=== PATIENT | female | born 1960 ===

== ENCOUNTER 2017-05-19 15:00 | Inpatient (IN) | payer OTHER ==
[~2017-05-19] VITALS: Ht 154.9 cm; Wt 71.7 kg
[2017-05-21] MEDS ORDERED: PROVENTIL HFA6.7 GM IH (13:42)
[2017-05-21] MEDS ORDERED: NORVASC5 MG PO (13:43)
[2017-05-28] MEDS ORDERED: OXYC1TAB9 PO (17:00)
== END 2017-05-28 18:07 | disposition home or self-care (01) | DRG 331 ==
LOC: SURH 05-25 06:33 → O/R 05-25 06:33 → SURH 05-25 12:24
PROVIDERS: Surgery
PROC: 0DTP4ZZ Resection of Rectum, Percutaneous Endoscopic Approach (ICD-10-PCS; 2017-05-25)
PROC: 0DBU4ZZ Excision of Omentum, Percutaneous Endoscopic Approach (ICD-10-PCS; 2017-05-25)
PROC: 0DJD8ZZ Inspection of Lower Intestinal Tract, Via Natural or Artificial Opening Endoscopic (ICD-10-PCS; 2017-05-25)
PROC: 3E0F7GC Introduction of Other Therapeutic Substance into Respiratory Tract, Via Natural or Artificial Opening (ICD-10-PCS; 2017-05-25)
PROC: 0DTN4ZZ Resection of Sigmoid Colon, Percutaneous Endoscopic Approach (ICD-10-PCS; principal; 2017-05-25 22:15)
DX: K57.32 Diverticulitis of large intestine without perforation or abscess without bleeding (principal); I11.9 Hypertensive heart disease without heart failure; R73.01 Impaired fasting glucose; J45.998 Other asthma

== ENCOUNTER 2017-08-11 08:30 | Outpatient (CLI) | payer OTHER ==
[~2017-08-11 08:30] MED LIST: NORVASC5 MG PO; OXYC1TAB9 PO; PROVENTIL HFA6.7 GM IH
== END 2017-08-11 09:00 | disposition home or self-care (01) ==
LOC: NUCLEAR 08:30
DX: I11.9 Hypertensive heart disease without heart failure (principal); M54.6 Pain in thoracic spine; S22.020A Wedge compression fracture of second thoracic vertebra, initial encounter for closed fracture

== ENCOUNTER 2019-01-18 21:58 | Emergency (ER) | payer OTHER ==
[~2019-01-18] VITALS: Ht 154.9 cm; Wt 68.9 kg
[2019-01-18] MEDS ORDERED: FORTAMET500 MG (22:18)
[2019-01-18] MEDS ORDERED: LOSARTAN POTASS50 MG (22:18)
[2019-01-18] MEDS ORDERED: ATORVASTATIN CA10 MG (22:19)
[2019-01-19] MEDS ORDERED: INTESTINEX680 M1 PO (07:24)
[2019-01-19] MEDS ORDERED: FLAGYL500MG PO (07:24)
[2019-01-19] MEDS ORDERED: LEVSIN/SL0.125 MG SL (07:24)
[2019-01-19] MEDS ORDERED: CIPRO500 MG PO (07:24)
== END 2019-01-19 08:10 ==
LOC: ER 21:58
DX: K57.90 Diverticulosis of intestine, part unspecified, without perforation or abscess without bleeding (principal); K40.90 Unilateral inguinal hernia, without obstruction or gangrene, not specified as recurrent; K76.0 Fatty (change of) liver, not elsewhere classified